=== PATIENT | male | born 1955 | race Caucasian/White ===

== ENCOUNTER 2019-05-01 11:07 | Emergency (ER) | payer BC, MEDICAID | END 2019-05-01 13:15 | disposition home or self-care (01) | LOC: FTE 11:07 | DX: L97.329 Non-pressure chronic ulcer of left ankle with unspecified severity (principal); I10 Essential (primary) hypertension; I87.2 Venous insufficiency (chronic) (peripheral) | CPT/HCPCS: 99283 ==